=== PATIENT | male | born 1950 | race Caucasian/White ===

== ENCOUNTER → 2017-03-17 | Outpatient (REF) | payer OTHER, MEDICARE ==
[2017-03-18 15:17] LABS: PERCENT SATURATION 22.7 % (19.7-37.4)
== END ==
LOC: M LAB REF 13:18
PROVIDERS: ATTEND Internal Medicine
DX: D50.9 Iron deficiency anemia, unspecified (principal)

== ENCOUNTER → 2017-07-26 | Outpatient (REF) | payer OTHER, MEDICARE ==
[2017-07-26 21:06] LABS: PERCENT SATURATION 28.6 % (19.7-50.0)
== END ==
LOC: M LAB REF 17:05
PROVIDERS: ATTEND Internal Medicine
DX: D50.9 Iron deficiency anemia, unspecified (principal)

== ENCOUNTER → 2018-06-06 | Outpatient (REF) | payer OTHER, MEDICARE ==
[2018-06-06 15:56] LABS: IRON (FE) 15 UG/DL (65-175); PERCENT SATURATION 4.5 % (19.7-50.0); TOTAL IRON BINDING CAPACITY 331 UG/DL (250-450)
== END ==
LOC: M LAB REF 13:10
DX: D50.9 Iron deficiency anemia, unspecified (principal)

== ENCOUNTER → 2018-06-07 | Outpatient (CLI) | payer OTHER, MEDICARE | LOC: M RAD 10:39 | DX: I70.212 Atherosclerosis of native arteries of extremities with intermittent claudication, left leg (principal); R09.89 Other specified symptoms and signs involving the circulatory and respiratory systems; R20.8 Other disturbances of skin sensation | CPT/HCPCS: 93926 ==

== ENCOUNTER → 2018-07-05 | Outpatient (CLI) | payer OTHER, MEDICARE | LOC: M RAD 08:44 | DX: I70.213 Atherosclerosis of native arteries of extremities with intermittent claudication, bilateral legs (principal) | CPT/HCPCS: 93925 ==

== ENCOUNTER → 2018-07-05 | Outpatient (REF) | payer OTHER, MEDICARE ==
[2018-07-05 19:57] LABS: C REACTIVE PROTEIN QUANTITATIV 3.15 MG/DL (0.00-0.30)
== END ==
LOC: M LAB REF 16:38
DX: L76.32 Postprocedural hematoma of skin and subcutaneous tissue following other procedure (principal)
CPT/HCPCS: 86140

== ENCOUNTER 2018-07-07 09:12 | Emergency (ER) | payer OTHER, MEDICARE ==
[2018-07-07 10:28] LABS: BASO % 0.5 % (0.0-1.0); EOS # 0.1 10^3/uL (0.0-0.50); EOS % 1.4 % (0.0-3.0); HEMATOCRIT 34.4 % (42.0-52.0); HEMOGLOBIN 10.6 g/dl (13.5-17.5); IMMATURE GRANULOCYTE % 0.6 % (0-3.0); LYMPH # 1.2 10^3/uL (1.5-4.5); LYMPH % 18.6 % (24.0-44.0); MEAN CORPUSCULAR HGB CONC 30.8 g/dl (32.0-36.5); MONO # 0.7 10^3/uL (0.0-0.8); MONO % 10.2 % (0.0-5.0); NEUTROPHILS # 4.6 10^3/uL (1.8-7.7); NEUTROPHILS % 68.7 % (36.0-66.0); PLATELET COUNT, AUTOMATED 335 10^3/uL (150-450); RED BLOOD COUNT 4.41 10^6/uL (4.30-6.10); RED CELL DISTRIBUTION WIDTH 19.6 % (11.5-14.5); WHITE BLOOD COUNT 6.7 10^3/uL (4.0-10.0)
[2018-07-07 11:03] LABS: ERYTHROCYTE SEDIMENTATION RATE 37 mm/hr (0-20)
[2018-07-07 11:04] LABS: ANION GAP 3 MEQ/L (8-16); BLOOD UREA NITROGEN 31 MG/DL (7-18); C REACTIVE PROTEIN QUANTITATIV 0.89 MG/DL (0.00-0.30); CALCIUM LEVEL 9.7 MG/DL (8.8-10.2); CARBON DIOXIDE LEVEL 28 MEQ/L (21-32); CHLORIDE LEVEL 104 MEQ/L (98-107); CREATININE FOR GFR 1.59 MG/DL (0.70-1.30); GLOMERULAR FILTRATION RATE 46.6 (>49); GLUCOSE, FASTING 141 MG/DL (70-100); POTASSIUM SERUM 6.8 MEQ/L (3.5-5.1); SODIUM LEVEL 135 MEQ/L (136-145)
[2018-07-07] MEDS: LevoFLOXacin IV 750 MG in APPROPRIATE DILUENT 1 EA IV (11:06)
[2018-07-07] MEDS: MORPHINE 4 MG/ML 1ML VIAL/SYRINGE (J2270) IV (11:44)
[2018-07-07] MEDS: ONDANSETRON 4MG/2ML VIAL (J2405) IV (11:44)
== END 2018-07-07 18:23 | disposition home or self-care (01) ==
LOC: M ED 09:12
DX: S30.1XXA Contusion of abdominal wall, initial encounter (principal); X58.XXXA Exposure to other specified factors, initial encounter; Y92.89 Other specified places as the place of occurrence of the external cause; M79.651 Pain in right thigh; I10 Essential (primary) hypertension; E11.51 Type 2 diabetes mellitus with diabetic peripheral angiopathy without gangrene; I73.9 Peripheral vascular disease, unspecified; E78.5 Hyperlipidemia, unspecified; K21.9 Gastro-esophageal reflux disease without esophagitis; G47.33 Obstructive sleep apnea (adult) (pediatric); Z79.899 Other long term (current) drug therapy
CPT/HCPCS: J1956

== ENCOUNTER → 2018-07-19 | Outpatient (REF) | payer OTHER, MEDICARE ==
[2018-07-19 19:58] LABS: C REACTIVE PROTEIN QUANTITATIV < 0.30 MG/DL (0.00-0.30)
== END ==
LOC: M LAB REF 17:46
DX: I75.022 Atheroembolism of left lower extremity (principal)

== ENCOUNTER → 2019-02-10 | Outpatient (REF) | payer OTHER, MEDICARE ==
[~2019-02-10] MED LIST: AMLO5TAB6 PO; ASPI1CHW2 PO; ASPI81TA26 PO; BISO10TA13 PO; CENTCHW3 PO; CHLO25TA PO; CRES40TA PO; ESCI10TA2 PO; FENO160T10 PO; FERR325T16 PO; HUMU70IN SC; JANU100T PO; LEVA1TAB2 PO; LOSA100T50 PO; LOVA1CAP17 PO; METF10004 PO; METF500T13 PO; PLAV1TAB2 PO; PREG50CA PO; PRIL20TA2 PO; REGL5TAB2 PO; VITMTA PO
[2019-02-13 13:46] LABS: PERCENT SATURATION 13.8 % (19.7-50.0)
== END ==
LOC: M LAB REF 12:15
PROVIDERS: ATTEND Internal Medicine
DX: D50.9 Iron deficiency anemia, unspecified (principal)

== ENCOUNTER → 2019-12-15 | Outpatient (REF) | payer OTHER, MEDICARE ==
[2019-12-15 17:04] LABS: PERCENT SATURATION 24.6 % (19.7-50.0)
== END ==
LOC: M LAB REF 16:22
PROVIDERS: ATTEND Internal Medicine
DX: D50.9 Iron deficiency anemia, unspecified (principal)

== ENCOUNTER → 2020-07-03 | Outpatient (CLI) | payer OTHER, MEDICARE ==
[~2020-07-03] MED LIST changes: +AMLO1TAB24 PO; -AMLO5TAB6 PO; +CLOP75TA2 PO; +HYDR-3911 PO; +HYDR12.55 PO; +HYDR25TAB PO; +VASC1CAP2 PO; +VITAPOW9 XX
--- NOTE | 2020-07-24 12:39 | REP ---
BILATERAL LOWER EXTREMITY ARTERIAL ULTRASOUND: 07/03/20 CLINICAL: History of atherosclerotic disease with claudication. TECHNIQUE: Real time lane scale and color Doppler evaluation using linear high frequency transducer through the bilateral lower extremity arterial structures. FINDINGS: Severe extensive partially calcified atheromatous plaquing noted through the bilateral lower extremities. The right MARIELOS equals 0.76. Left MARIELOS equals 1.06 and these may be over estimated due to the calcified atheromatous plaquing. The right lower extremities demonstrates tri-phasic arterial wave patterns in the common femoral artery and profunda followed by monophasic wave patterns through the superficial femoral artery distally to the ankle. There are multiple segments of mild to moderate stenosis noted primarily at the margin of the profunda artery as well as throughout the superficial femoral artery to popliteal artery and orgin of the right anterior tibial artery. There is a focal area of occlusion at the distal posterior tibial artery with subsequent downstream revascularization. Left lower extremity demonstrates tri-phasic/bi-phasic wave patterns to the level of the popliteal artery with subsequent monophasic wave patterns distally. There is moderate stenosis at the distal popliteal artery/trifurcation as well as areas of stenosis at the proximal posterior and anterior tibial arteries. There is an area of occlusion in the distal posterior tibial artery with subsequent downstream revascularization. IMPRESSION: Extensive atherosclerotic disease as described above. Please refer to worksheet for detailed velocities. MTDD
== END ==
LOC: M RAD 08:39
PROVIDERS: ATTEND Physician Assistant
DX: I70.213 Atherosclerosis of native arteries of extremities with intermittent claudication, bilateral legs (principal)

== ENCOUNTER → 2020-09-03 | Outpatient (CLI) | payer OTHER, MEDICARE ==
--- NOTE | 2020-09-04 05:02 | REP ---
INDICATION: ATH ELSIE ART OF EXT WITH INTERM MADI, MARILYNN LEGS COMPARISON: 07/03/2020 TECHNIQUE: Real time lane scale and color Doppler evaluation of the bilateral lower extremity arterial vasculature using linear high frequency transducer. FINDINGS: Bilateral vascular stents are identified which demonstrate satisfactory flow. [place] vasculature demonstrates significant atheromatous plaquing bilaterally. The right lower extremity demonstrates monophasic wave patterns distal to the common femoral artery along with 2:1 stenosis at the level of the common femoral artery. The left lower extremity demonstrates monophasic wave patterns distal to the common femoral artery along with 2:1 stenosis at the tibioperoneal trunk/origin of the posterior tibial artery. MARIELOS right: 0.9; left: 0.8. Right lower extremity stent: Pre stent anastomosis: 103 cm/sec Post anastomosis: 99 cm/sec Distal stent anastomosis: 65 cm/sec Post anastomosis: 71 cm/sec Left lower extremity stent: Pre stent anastomosis: 212 cm/sec Post anastomosis: 194 cm/sec Distal stent anastomosis: 82 cm/sec Post anastomosis: 103 cm/sec Peak systolic velocities (cm/sec) Common femoral artery: Right 145; Left 211 Profunda femoris: Right 299; Left 173 SFA (proximal): Right 236; Left 212 SFA stent (mid): Right 90; Left 99 SFA stent (distal): Right 75; Left 74 Popliteal artery: Right 71; Left 103 GALA (prox.): Right 98; Left 148 Tibioperoneal trunk: Right 73; Left 101 DESIZING MACHINE OPERATOR (prox.): Right 122; Left 206 DESIZING MACHINE OPERATOR (distal): Right 45; Left 64 GALA (distal): Right 113; Left 40 IMPRESSION: 1. Significant atherosclerotic changes. Bilateral stents are patent with satisfactory flow velocities. 2. Elements of stenosis through the right common femoral artery and origin of the left posterior tibial artery noted. <Electronically signed by Juan Alberto Grant > 09/04/20 [id number]
== END ==
LOC: M RAD 13:01
PROVIDERS: ATTEND Physician Assistant
DX: I70.213 Atherosclerosis of native arteries of extremities with intermittent claudication, bilateral legs (principal)

== ENCOUNTER → 2020-12-12 | Outpatient (REF) | payer OTHER, MEDICARE ==
[~2020-12-12] MED LIST changes: +ESCI10TA16 PO; -ESCI10TA2 PO; +HYDR-3490 PO; -HYDR25TAB PO
== END ==
LOC: M LAB REF 12:21
PROVIDERS: ATTEND Internal Medicine
DX: E11.65 Type 2 diabetes mellitus with hyperglycemia (principal); Z79.4 Long term (current) use of insulin

== ENCOUNTER → 2021-06-19 | Outpatient (REF) | payer OTHER, MEDICARE ==
[~2021-06-19] MED LIST changes: +FERR324T21 PO; -FERR325T16 PO
== END ==
LOC: M LAB REF 16:26
PROVIDERS: ATTEND Internal Medicine
DX: D64.9 Anemia, unspecified (principal)

== ENCOUNTER → 2021-06-19 | Outpatient (REF) | payer OTHER, MEDICARE ==
[2021-06-19 17:51] LABS: PERCENT SATURATION 24.6 % (19.7-50.0)
== END ==
LOC: M LAB REF 17:02
PROVIDERS: ATTEND Internal Medicine
DX: D50.9 Iron deficiency anemia, unspecified (principal)

== ENCOUNTER → 2022-11-07 | Outpatient (REF) | payer MEDICARE, OTHER ==
[~2022-11-07] MED LIST changes: +CLOP75TA99 PO; +LOSA100T45 PO; -LOSA100T50 PO; -PLAV1TAB2 PO
== END ==
LOC: M WUC 18:49
PROVIDERS: ATTEND Physician Assistant
DX: R19.7 Diarrhea, unspecified (principal)

== ENCOUNTER → 2024-04-21 | Outpatient (CLI) | payer MEDICARE, OTHER ==
[~2024-04-21] MED LIST changes: -HYDR-3911 PO; +HYDR50TA46 PO; -LOSA100T45 PO; +LOSA100T46 PO
== END ==
LOC: M WUC 10:03
PROVIDERS: ATTEND Internal Medicine
DX: M16.0 Bilateral primary osteoarthritis of hip (principal)